=== PATIENT | female | born 1935 | race Caucasian/White ===

== ENCOUNTER 2019-06-28 12:13 | Emergency (ER) | payer OTHER, SELFPAY ==
--- NOTE | ~2019-06-28 | XR_ITS ---
EXAMINATION: XR chest 2V DATE: 06/28/2019 12:49 INDICATION: Racing heart and fatigue. TECHNIQUE: PA and lateral views of the chest were obtained. COMPARISON: None FINDINGS: There are a few scattered small calcified pulmonary nodules consistent with old granulomatous disease . No other airspace opacities, pulmonary edema, pleural effusion or pneumothorax. Mild cardiomegaly. Thoracic kyphosis with moderate spondylosis. IMPRESSION: 1. Mild cardiomegaly. No acute cardiopulmonary disease. Reviewed, dictated and finalized at location A.
--- NOTE | 2019-06-28 12:14 | ECG_ITS ---
Measurements Intervals [place] Rate: 71 P: 33 [place]: 139 QRS: -35 QRSD: 91 T: 20 QT: 367 QTc: 399 Interpretive Statements SINUS RHYTHM LEFT AXIS DEVIATION CONSIDER INFERIOR INFARCT, AGE INDETERMINATE ABNORMAL ECG Electronically Signed On 06-28-2019 12:25:43 CDT by Dwight Vasquez D.O.
[2019-06-28 12:24] VITALS: BP 197/83; PULSE 74; RESP 18; TEMP 36.1; O2SAT 100
[2019-06-28 12:38] LABS: Basophils Percent Auto 0.6 % (0.2-1.2); Eosinophils Absolute Auto 0.2 K/mm3 (0-0.3); Eosinophils Percent Auto 2.4 % (0-4.4); Hemoglobin 13.7 g/dL (12.0-15.0); Immature Granulocyte Absolute 0.03 K/mm3 (0.00-0.031); Immature Granulocyte Percent A 0.5 % (0-0.5); Lymphocytes Absolute Auto 1.67 K/mm3 (0.9-3.2); Lymphocytes Percent Auto 25.3 % (18.3-44.2); Mean Corpuscular HGB Conc 32.6 g/dl (32-36); Mean Corpuscular Hemoglobin 28.2 pg (26-34); Mean Corpuscular Volume 86.4 fl (80-100); Mean Platelet Volume 9.1 fl (7.4-10.4); Monocytes Absolute Auto 0.6 K/mm3 (0.1-0.6); Monocytes Percent Auto 8.9 % (2.6-8.5); Neutrophils Absolute Auto 4.1 K/mm3 (1.3-6.7); Neutrophils Percent Auto 62.3 % (45.5-73.1); Platelet Count Result 253 k/mm3 (150-375); Red Blood Count 4.86 M/mm3 (4.2-5.4); Red Cell Distribution Width 13.2 % (11.5-14.5); White Blood Count 6.6 K/mm3 (4.5-10.0)
[2019-06-28] MEDS: ASPIRIN 81 MG CHEWABLE TABLET 324 MG PO (12:40)
--- NOTE | 2019-06-28 12:42 | PC.NURSE ---
Pt taken to xray at this time
[2019-06-28 12:49] LABS: Blood Urea Nitrogen 14 mg/dL (7-17); Calcium 10.1 mg/dL (8.4-10.2); Carbon Dioxide 29 mmol/L (22-30); Chloride 101 mmol/L (98-107); Estimated CRCL calculation 56 ml/min; Estimated Glomerular Filt Rate > 60; Glucose 105 mg/dL (65-105); Sodium 137 mmol/L (137-145)
[2019-06-28 12:51] LABS: Prothrombin Time 13.1 Seconds (11.1-14.7)
[2019-06-28 12:52] LABS: Partial Thromboplastin Time 27.9 SECONDS (22.3-36.8)
[2019-06-28 13:01] LABS: Troponin I < 0.012 ng/mL (0.000-0.034)
--- NOTE | 2019-06-28 13:28 | ED.ARRPALP ---
HPI - Arrhythmia/Palpitations General Chief Complaint: Arrhythmia/Palpitations Stated Complaint: elevated bp, fast HR Time Seen by Provider: 06/28/19 13:15 Source: patient Mode of arrival: ambulatory Limitations: no limitations History of Present Illness HPI narrative: Patient is an 84-year-old female who presents to the emergency department with complaint of palpitations and generalized weakness. Patient noticed what seemed like a rapid heartbeat and sense of palpitations early yesterday morning. Patient denies having any chest pain or shortness of breath. She has noticed her blood pressure has been up and down ranging from 130s to 190s at home. Patient is denying any symptoms currently. She states she called her primary care physician who advised to come to the emergency department to be evaluated. Patient denies any history of heart dysrhythmias. MD complaint: rapid heart beat and palpitations Onset (ago): day(s) Related Data Home Medications Medication Instructions Recorded Confirmed multivitamin 1 tablet PO DAILY 02/22/19 02/22/19 omeprazole 06/28/19 Allergies Allergy/AdvReac Type Severity Reaction Status Date / Time Sulfa (Sulfonamide Allergy Severe Lips Verified 06/28/19 12:41 Antibiotics) swollen Review of Systems Review of Systems: All systems reviewed & are unremarkable except as noted in HPI and below Cardiovascular: Cardiovascular: Denies chest pain and Reports rapid heart rate Respiratory: Respiratory: Denies cough and Denies dyspnea Gastrointestinal: Gastrointestinal: Denies abdominal pain, Denies nausea and Denies vomiting PMFSH Past Medical History Medical History Dyslipidemia Essential hypertension GERD (gastroesophageal reflux disease) History of ectopic Surgical History Surgical History History of cholecystectomy History of hysterectomy History of salpingectomy Social History Social History Smoking status: Never smoker Alcohol intake: never Gender identity (if verbalized by the patient): Female Exam Const: General: cooperative, no acute distress and alert Nutritional Appearance: obese Orientation/consciousness: patient oriented x3 Limitations: no limitations Eyes: Conjunctivae: conjunctivae normal Pupils: Equal, round and reactive pupils present Resp: Effort & Inspection: normal respiratory effort Auscultation: clear to auscultation bilaterally Cardio: Rate: regular rate Rhythm: regular rhythm GI: GI Palp: Yes Soft to palpation and No Tenderness to palpation present (GI) Auscultation: normal bowel sounds Skin: General skin exam: normal color and no rashes or lesions noted Neuro: General: patient oriented x3 Cognition (Neuro): normal cognition Speech: normal speech Extrem: General: normal to inspection, full ROM and no clubbing, cyanosis or edema Psych: Mental Status: mental status grossly normal Affect: normal affect Attitude: cooperative Course Course Emergency Course: Patient in normal sinus rhythm in the emergency department. Labs unremarkable and patient asymptomatic. Advised importance of primary care follow-up for further evaluation and treatment as needed. Vital Signs Vital signs: Vital Signs Temperature 97.0 F L 06/28/19 12:24 Pulse Rate 74 06/28/19 12:24 Respiratory Rate 18 06/28/19 12:24 Blood Pressure 197/83 H 06/28/19 12:24 Pulse Oximetry 100 06/28/19 12:24 Temperature 97.0 F L 06/28/19 12:24 Pulse Rate 100 06/28/19 14:34 Respiratory Rate 18 06/28/19 14:34 Blood Pressure 112/66 06/28/19 14:34 Pulse Oximetry 100 06/28/19 14:34 MDM - Arrhythmia/Palpitations Medical Records Attestation: I reviewed the patient's medical records. Lab Data Attestation: I reviewed the patient's lab results. Result diagrams:
[2019-06-28 13:45] VITALS: BP 169/71; PULSE 68; RESP 16; O2SAT 99
--- NOTE | 2019-06-28 13:54 | PC.NURSE ---
Called to add on Mg and TSH.
[2019-06-28 14:14] LABS: Magnesium 2.2 mg/dL (1.6-2.3)
[2019-06-28 14:34] VITALS: BP 112/66; PULSE 100; RESP 18; O2SAT 100
[2019-06-28 15:35] VITALS: BP 151/67; PULSE 62; RESP 18; O2SAT 96
[2019-06-28 16:44] LABS: Free T4 Free Thyroxine Reflex 0.85 ng/dL (0.78-2.19)
== END 2019-06-28 15:39 | disposition home or self-care (01) ==
PROVIDERS: Emergency Provider Emergency Medicine; PCP Internal Medicine
DX: R00.2 Palpitations (principal); E78.5 Hyperlipidemia, unspecified; I10 Essential (primary) hypertension; K21.9 Gastro-esophageal reflux disease without esophagitis
CPT/HCPCS: 36415; 71046; 80048; 83735; 84439; 84443; 84480; 84484; 85025; 85610; 85730; 93005; 99284; A9270

== ENCOUNTER 2021-03-28 10:46 | Outpatient (CLI) | payer OTHER, SELFPAY ==
--- NOTE | ~2021-03-28 | XR_ITS ---
EXAMINATION: XR knee RT 3V DATE: 03/28/2021 11:18 INDICATION: Right knee pain TECHNIQUE: Three views of the right knee were obtained. COMPARISON: None. FINDINGS: Alignment is normal. No fracture or osteochondral lesion. There is moderate osteoarthritis of the medial and lateral compartments and advanced osteoarthritis in the lateral patellofemoral comp artment. Chondrocalcinosis is noted. No joint effusion/synovitis. Soft tissues are unremarkable. IMPRESSION: 1. 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 Reviewed, dictated and finalized at location A. [employer] IMPRESSION: 1. Tricompartmental osteoarthritis, severe in the lateral patellofemoral compar tment.
--- NOTE | ~2021-03-28 | XR_ITS ---
XR knee LT 3V DATE: 03/28/2021 11:18 INDICATION: Chronic left knee pain TECHNIQUE: [place] and standing AP and lateral views COMPARISON: None FINDINGS: There is severe joint space narrowing and very prominent periarticular spurring and lateral subluxation at the patellofemoral joint. There is mild periarticular spurring at the medial compartments with medial compartment joint spaces are relatively preserved. Diffuse osteopenia. No fracture or dislocation or joint effusion. No periosteal reaction or bone destruction. No radiopaq ue intra-articular loose body is evident. Slight chondrocalcinosis is noted. IMPRESSION: Severe osteoarthritis, lateral subluxation at the patellofemoral joint Mild osteoarthritic change at the medial and lateral compartments Slight chondrocalcinosis Osteopenia Reviewed, dictated and finalized at location B. [employer] IMPRESSION: Severe osteoarthritis, lateral subluxation at the patellofemoral dara int Mild osteoarthritic change at the medial and lateral compartments Slight chondrocalcinosis Osteopenia
--- NOTE | ~2021-03-28 | XR_ITS ---
EXAMINATION: XR foot RT 2V INDICATION: Right foot pain TECHNIQUE: Two views of the right foot are obtained. COMPARISON: None available FINDINGS: There is hallux valgus of the first metatarsophalangeal joint. No fracture is identified. T here is moderate osteoarthritis of multiple interphalangeal joints. The soft tissues are unremarkable . Posterior and plantar calcaneal enthesophytes are noted. IMPRESSION: 1. Osteoarthritis without acute osseous abnormality. Reviewed, dictated and finalized at location A. [employer]
== END 2021-03-28 10:47 | disposition home or self-care (01) ==
LOC: ANHIMG 10:53
PROVIDERS: PCP Internal Medicine; Visit Provider Internal Medicine
DX: M79.673 Pain in unspecified foot (principal); M25.569 Pain in unspecified knee; M17.0 Bilateral primary osteoarthritis of knee; M11.262 Other chondrocalcinosis, left knee; M85.862 Other specified disorders of bone density and structure, left lower leg
CPT/HCPCS: 73562; 73620

== ENCOUNTER 2021-12-20 09:16 | Outpatient (CLI) | payer OTHER, SELFPAY ==
--- NOTE | ~2021-12-20 | XR_ITS ---
EXAMINATION: XR shoulder LT min 2V INDICATION: Left shoulder pain with abduction TECHNIQUE: Four views of the left shoulder are submitted. COMPARISON: None FINDINGS: Normal alignment. No fracture. There is moderate osteoarthritis of the acromioclavicular an d glenohumeral joints. Soft tissues are unremarkable. IMPRESSION: 1. Moderate osteoarthritis without acute osseous abnormality Reviewed, dictated and finalized at location B. [employer] WORK[employer]
== END 2021-12-20 09:17 | disposition home or self-care (01) ==
PROVIDERS: PCP Internal Medicine; Visit Provider Internal Medicine
DX: M25.512 Pain in left shoulder (principal); M19.012 Primary osteoarthritis, left shoulder
CPT/HCPCS: 73030

== ENCOUNTER 2022-11-28 12:35 | Outpatient (CLI) | payer OTHER, SELFPAY | END 2022-11-28 12:36 | disposition home or self-care (01) | LOC: ANHAUDIO 12:35 | PROVIDERS: PCP Family Medicine; Visit Provider Family Medicine | DX: H91.93 Unspecified hearing loss, bilateral (principal) | CPT/HCPCS: 92557; 92567 ==

== ENCOUNTER 2023-05-17 10:22 | Outpatient (CLI) | payer OTHER, SELFPAY ==
--- NOTE | ~2023-05-17 | DEXA_ITS ---
Bone Density Report Name: SERGIO BRITTON Age: 88 Sex: Female Ethnicity: White Date of : 1935 Indication: postmenopausal; screening for osteoporosis; height loss; hysterectomy; Referring Provider: ARIA DUPREE Study: Bone densitometry was performed. Exam Date: May 17, 2023 Accession number: [id number] Bone Density: Region BMD T-score Z-score Classification AP Spine(L1-L4) 1.155 1.0 3.9 Normal Femoral Neck (Left) 0.924 0.7 3.2 Normal Total Hip (Left) 1.187 2.0 4.3 Normal Femoral Neck (Right) 0.908 0.5 3.1 Normal Total Hip (Right) 1.151 1.7 4.0 Normal Total Hip Mean 1.169 1.9 4.2 Normal World Health Organization criteria for BMD impression classify patients as: Normal (T-score at or above -1.0), Osteopenia (T-score between -1.0 and -2.5), or Osteoporosis (T-score at or below -2.5). 10-year Fracture Risk: FRAX not reported because: All T-scores for Spine Total, Hip Total, Femoral Neck at or above -1.0 Clinical Information Provided by Patient: Has used the following medications: Vitamin D Has the following medical conditions: Hysterectomy Patient maximum height was 66 Menopause Age: 44 No regular weight bearing exercise Drinks caffeinated beverages Onset of menses at age 12 Number of children 5 Impression: The patient has normal bone mass. Discussion: LOW RISK OF FRACTURE; BONE DENSITY IS WELL ABOVE THE MINIMUM DESIRABLE LEVEL AND ABOVE AVERAGE FOR AGE AND SEX AT ALL SKELETAL SITES TESTED. This person's bone density is above expected limits for age and sex. This is rarely clinically significant, but should be pursued if there are significant musculoskeletal complaints. The patient should follow a healthful lifestyle (good nutrition with adequate calcium and vitamin D, and appropriate weight-bearing exercise). Follow-Up: Consider repeating this study in 5 years or sooner if there is some new clinical indication. Reported by: PETE on 05/17/2023 10:48:00 AM. Reviewed, dictated and finalized at location ACristino SANTANA
== END 2023-05-17 10:23 | disposition home or self-care (01) ==
PROVIDERS: PCP Family Medicine; Visit Provider Family Medicine
DX: N95.0 Postmenopausal bleeding (principal); R29.890 Loss of height; Z90.710 Acquired absence of both cervix and uterus; Z13.820 Encounter for screening for osteoporosis
CPT/HCPCS: 77080